=== PATIENT | male | born 1960 | race Caucasian/White ===

== ENCOUNTER 2017-01-01 22:46 | Emergency (ER) | payer SELFPAY ==
[2017-01-02] MEDS ORDERED: Ibuprofen TAB* 600 MG PO ONE (01:10)
[2017-01-02 02:21] LABS: Hematocrit 41 % (42-52); Hemoglobin 14.1 g/dl (14.0-18.0); Mean Corpuscular HGB Conc 34 g/dl (31-36); Mean Corpuscular Hemoglobin 31 pg (27-31); Mean Corpuscular Volume 90 fL (80-94); Mean Platelet Volume 8 um3 (7.4-10.4); Red Blood Count 4.59 10^6/ul (4.0-5.4); Red Cell Distribution Width 13 % (10.5-15); White Blood Count 15.6 10^3/ul (3.5-10.8)
[2017-01-02 02:35] LABS: ALT 12 U/L (7-52); AST 13 U/L (13-39); Acetaminophen < 15 mcg/mL; Albumin 3.8 g/dL (3.2-5.2); Alcohol < 10 mg/dL (<10); Alkaline Phosphatase 23 U/L (34-104); Anion Gap 7 mmol/L (2-11); BUN/Creatinine Ratio 16.2 (8-20); Blood Urea Nitrogen 17 mg/dL (6-24); CO2 Carbon Dioxide 26 mmol/L (22-32); Calcium 8.7 mg/dL (8.6-10.3); Chloride 104 mmol/L (101-111); EGFR African American 94.7 (>60); EGFR Non-African American 73.6 (>60); Globulin 2.6 g/dL (2-4); Glucose 132 mg/dL (70-100); Potassium 3.7 mmol/L (3.5-5.0); Salicylate < 2.50 mg/dL (<30); Sodium 137 mmol/L (133-145); Total Protein 6.4 g/dL (6.4-8.9)
[2017-01-02 02:50] LABS: TSH (Thyroid Stimulating Horm) 1.41 mcIU/mL (0.34-5.60)
[2017-01-02 03:45] LABS: Benzodiazepine Urine Screen None Detected (None Detect)
[2017-01-02 04:37] VITALS: BP 143/80
--- NOTE | 2017-01-02 09:16 | RAD ---
Indication: Fall, back pain. CT of the thoracic spine was obtained in the axial plane. Sagittal and coronal reconstructed images were obtained. The vertebral bodies appear normal in height. No compression fracture is noted. There is no fracture of the thoracic spine. Bridging syndesmophytes are noted in the mid thoracic spine. No compression is noted. No evidence of soft tissue hematoma is noted. IMPRESSION: Multilevel degenerative disc disease of the thoracic spine. No fracture is identified.
--- NOTE | 2017-01-02 09:18 | RAD ---
Indication: Fall, back pain. CT of the lumbar spine was obtained in the axial plane. Sagittal and coronal reconstructed images were obtained. The vertebral bodies appear normal in height. No compression fracture is noted. There is disc space narrowing at L2-3 with ventral osteophyte formation. No fracture is identified. Spinous processes are unremarkable. No fracture is identified. At L3-4, there is broad-based protrusion. Facet and ligamentous hypertrophy is noted. Moderate degree of spinal stenosis is noted. At L4-5, there is broad-based protrusion. There is flattening of the thecal sac. Moderate facet hypertrophy is noted. At L5-S1, broad-based protrusion flattens the thecal sac. No foraminal stenosis is noted. IMPRESSION: No fracture of lumbar spine is noted. Moderate degree of spinal stenosis at L3-4, L4-5 and L5-S1 due to broad-based protrusion and facet arthropathy.
--- NOTE | 2017-02-02 07:56 | ED ---
Psychiatric Complaint - HPI Summary HPI Summary: Patient arrives via EMS, EMS was called to the scene for a man "in a trance like state". Patient is having auditory hallucinations. States he is talking to his son. Patient has a history of paranoid schizophrenia. Patient arrives with large abrasions on his back, c/o right lower back pain. On speaking with the patient on arrival, he continues to hallucinate - although denies this. He states he has had hallucinations in the past, but denies any currently. Denies taking any medications at this time. States his back hurts, but is unsure why. He does not recall falling, but states "I might have." Denies alcohol or drug use. Denies any pain. - History Of Current Complaint Chief Complaint: [facility]entalHealth Time Seen by Provider: 01/01/17 23:39 Hx Obtained From: Patient Onset/Duration: Sudden Onset Timing: Constant Severity Initially: Moderate Severity Currently: Moderate Aggravating Factor(s): Medication Non-compliance Alleviating Factor(s): Nothing Associated Signs And Symptoms: Positive: Hallucinating Related History: Positive For: Prior Psychiatric Issues - Risk Factor(s) Completed Suicide Risk Factors: Negative PMH/Surg Hx/FS Hx/Imm Hx Previously Healthy: Yes - Immunization History Hx Pertussis Vaccination: No Immunizations Up to Date: Unable to Obtain/Confirm Infectious Disease History: Unable to Obtain/Confirm Infectious Disease History: Denies: Traveled Outside the in Last 30 Days - Social History Occupation: Unemployed Lives: With Family Alcohol Use: Occasionally Hx Substance Use: Yes Substance Use Type: Reports: Marijuana Substance Use Comment - Amount & Last Used: per patients aunt he used to do "k2 " when living in [place] Hx Tobacco Use: Yes Smoking Status (MU): Current Every Day Smoker Type: Cigarettes Review of Systems Constitutional: Negative Negative: Fever, Fatigue Eyes: Negative Cardiovascular: Negative Respiratory: Negative Genitourinary: Negative Positive: no symptoms reported, see HPI Musculoskeletal: Negative Neurological: Negative Positive: Other - hallucinating All Other Systems Reviewed And Are Negative: Yes Physical Exam Triage Information Reviewed: Yes Vital Signs On Initial Exam: Initial Vitals Temp Pulse Resp BP Pulse Ox 98.3 F 89 16 134/73 95 01/01/17 23:01 01/01/17 23:01 01/01/17 23:01 01/01/17 23:01 01/01/17 23:01 Vital Signs Reviewed: Yes Appearance: Positive: Well-Appearing, Well-Nourished Skin: Positive: Warm, Skin Color Reflects Adequate Perfusion Head/Face: Positive: Normal Head/Face Inspection Eyes: Positive: EOMI, MELANI, Conjunctiva Clear Neck: Positive: Supple, No Lymphadenopathy Respiratory/Lung Sounds: Positive: Clear to Auscultation, Breath Sounds Present Cardiovascular: Positive: RRR, Pulses are Symmetrical in both Upper and Lower Extremities Musculoskeletal: Positive: Normal, Strength/ROM Intact Neurological: Positive: Speech Normal Psychiatric: Positive: Other - hallucinating AVPU Assessment: Alert - Metter Coma Scale Coma Scale Total: 15 Diagnostics - Vital Signs Vital Signs Temp Pulse Resp BP Pulse Ox 01/02/17 04:36 71 16 143/80 100 01/01/17 23:01 98.3 F 89 16 134/73 95 - Laboratory Lab Results: Lab Results 01/02/17 01/02/17 01/02/17 Range/Units 02:02 02:02 03:15 WBC 15.6 H (3.5-10.8) 10^3/ul RBC 4.59 (4.0-5.4) 10^6/ul Hgb 14.1 (14.0-18.0) g/dl Hct 41 L (42-52) % MCV 90 (80-94) fL MCH 31 (27-31) pg MCHC 34 (31-36) g/dl RDW 13 (10.5-15) % Plt Count 195 (150-450) 10^3/ul MPV 8 (7.4-10.4) um3 Neut % (Auto) 74.8 (38-83) % Lymph % (Auto) 16.2 L (25-47) % [place]vert % (Auto) 7.6 (1-9) % Eos % (Auto) 1.0 (0-6) % Baso % (Auto) 0.4 (0-2) % Absolute Neuts (auto) 11.7 H (1.5-7.7) 10^3/ul Absolute Lymphs (auto) 2.5 (1.0-4.8) 10^3/ul Absolute Monos (auto) 1.2 H (0-0.8) 10^3/ul Absolute Eos (auto) 0.2 (0-0.6) 10^3/ul Absolute Basos (auto) 0.1 (0-0.2) 10^3/ul Absolute Nucleated RBC 0 10^3/ul Nucleated RBC % 0 Sodium 137 (133-145) mmol/L Potassium 3.7 (3.5-5.0) mmol/L Chloride 104 (101-111) mmol/L Carbon Dioxide 26 (22-32) mmol/L Anion Gap 7 (2-11) mmol/L BUN 17 (6-24) mg/dL Creatinine 1.05 (0.67-1.17) mg/dL Est GFR ( Amer) 94.7 (>60) Est GFR (Non-Af Amer) 73.6 (>60) BUN/Creatinine Ratio 16.2 (8-20) Glucose 132 H (70-100) mg/dL Calcium 8.7 (8.6-10.3) mg/dL Total Bilirubin 0.30 (0.2-1.0) mg/dL AST 13 (13-39) U/L ALT 12 (7-52) U/L Alkaline Phosphatase 23 L (34-104) U/L Total Protein 6.4 (6.4-8.9) g/dL Albumin 3.8 (3.2-5.2) g/dL Globulin 2.6 (2-4) g/dL Albumin/Globulin Ratio 1.5 (1-3) TSH 1.41 (0.34-5.60) mcIU/mL Salicylates < 2.50 (<30) mg/dL Urine Opiates Screen None detected (None Detect) Acetaminophen < 15 mcg/mL Ur Barbiturates Screen None detected (None Detect) Ur Phencyclidine Scrn None detected (None Detect) Ur Amphetamines Screen None detected (None Detect) U Benzodiazepines Scrn None detected (None Detect) Urine Cocaine Screen None detected (None Detect) U Cannabinoids Screen None detected (None Detect) Serum Alcohol < 10 (<10) mg/dL Result Diagrams: 01/02/17 02:02 01/02/17 02:02 Lab Statement: Any lab studies that have been ordered have been reviewed, and results considered in the medical decision making process. Course/Dx - Course Course Of Treatment: During the course of treatment, patient is appearing to hallucinate as he is talking to his son who is not present at bedside. He denies this. He denies any pain - although he has abrasions to his backside as if he has fallen. CT of the spine obtained. Awaiting results, signed out to Dr. Rico. - Differential Dx/Clinical Impression Differential Diagnosis/HQI/PQRI: Positive: Other - schizophrenia vs. hallucinatinagens Provider Diagnosis: Hallucination Discharge - Discharge Plan Condition: Stable Disposition: HOME Forms: *Work Release Referrals: No Primary Care Phys,NOPCP [Primary Care Provider] - Additional Instructions: Per completion of a mental health evaluation, you are cleared for release and do not require inpatient psychiatric hospitalization at this time. Please go to nearest emergency room or call 911 if safety concerns arise or condition worsens. Important Phone Numbers: [facility] [phone] Suicide Prevention and Crisis Services [phone] National Suicide Prevention Lifeline [phone] ([phone]) [facility] [phone] Alcoholics Anonymous [phone] [facility] [phone] [place] [employer] [phone]
== END 2017-01-02 04:37 | disposition home or self-care (01) ==
LOC: ED 22:46
DX: R44.3 Hallucinations, unspecified (principal); F17.210 Nicotine dependence, cigarettes, uncomplicated
CPT/HCPCS: 36415; 72128; 72131; 80053; 80307; 80320; 80329; 84443; 85025; 99282; A9270-GY; G0480